=== PATIENT | female | born 2000 | race Caucasian/White ===

== ENCOUNTER 2021-09-30 14:36 | Emergency (ER) | payer OTHER ==
[2021-09-30 16:14] LABS: HEMOGLOBIN 13.4 gm/dl (12.3-15.3); RED BLOOD COUNT 4.38 M/UL (4.00-5.10); WHITE BLOOD COUNT 15.3 K/UL (4.5-11.0)
[2021-09-30 16:36] LABS: BUN/CREATININE RATIO 13 (0-10)
[2021-09-30] MEDS ORDERED: CEPHALEXIN500 MG PO (19:13)
== END 2021-09-30 19:33 | disposition home or self-care (01) ==
LOC: ER1 14:36
PROVIDERS: Physician Assistant Medical
DX: L03.116 Cellulitis of left lower limb (principal); J45.909 Unspecified asthma, uncomplicated
CPT/HCPCS: 73030; 73130; 73552; 73590; 80053; 85025; 96372; 99283; J1650

== ENCOUNTER → 2021-10-01 | Outpatient (CLI) | payer OTHER ==
[~2021-10-01] MED LIST: CEPHALEXIN500 MG PO
== END ==
LOC: US 10:41
DX: L03.90 Cellulitis, unspecified (principal)
CPT/HCPCS: 93971